=== PATIENT | female | born 1955 | race Two or more races ===

== ENCOUNTER 2023-01-27 08:37 | Emergency (ER) | payer OTHER, MEDICAID ==
[~2023-01-27] VITALS: Ht 147.3 cm; Wt 45.6 kg
[2023-01-27 10:05] VITALS: BP 102/56
== END 2023-01-27 10:29 | disposition home or self-care (01) ==
LOC: ER 08:37
DX: S00.83XA Contusion of other part of head, initial encounter (principal); I10 Essential (primary) hypertension; W06.XXXA Fall from bed, initial encounter; Y93.89 Activity, other specified; Y92.89 Other specified places as the place of occurrence of the external cause; Y99.8 Other external cause status
CPT/HCPCS: 70450; 70486; 72125